=== PATIENT | female | born 1980 | race Caucasian/White ===

== ENCOUNTER 2019-03-15 08:23 | Outpatient (CLI) | payer OTHER | END 2019-03-15 08:31 | disposition home or self-care (01) | LOC: SONOGRAMA 08:23 | DX: E04.8 Other specified nontoxic goiter (principal) ==

== ENCOUNTER → 2021-09-24 07:34 | Outpatient (CLI) | payer OTHER | END | disposition home or self-care (01) | LOC: NUCLEAR 07:00 | PROVIDERS: ATTEND Internal Medicine Gastroenterology | DX: R10.84 Generalized abdominal pain (principal) | CPT/HCPCS: 78264; A9541 ==